=== PATIENT | female | born 1995 | race Caucasian/White ===

== ENCOUNTER 2016-11-15 12:31 | Emergency (ER) | payer SELFPAY ==
[2016-11-15 13:01] LABS: Bilirubin Negative (Negative); Blood, Urine Negative (Negative); Glucose, Urine (Dipstick) Negative (Negative); Ketone, Urine Negative (Negative); Nitrite Negative (Negative); Protein, Urine (Dipstick) Negative (Neg-Trace); Urobilinogen 0.2 mg/dL (0.2-1.0)
[2016-11-15 13:15] LABS: Bacteria/HPF 1+ HPF (None Seen); Hyaline Casts/LPF NONE SEEN LPF (0-3 Hyaline); Oval Fat Bodies/HPF None Seen HPF (None Seen); RBC/HPF 0-3 HPF (0-3); Renal Epithelial None Seen HPF (0-3); Sperm/HPF None Seen HPF (None Seen); Transitional Epithelial NONE SEEN HPF (0-3); Trichomonas/HPF None Seen HPF (None Seen); Yeast-All Forms None Seen HPF (None Seen)
--- NOTE | 2016-11-15 14:18 | ERRECORD ---
[facility] EMERGENCY RECORD HPI ABDOMINAL PAIN (12:56 [facility]) CHIEF COMPLAINTS: Patient presents for evaluation of abdominal pain. HISTORIAN: History provided by patient, 21 year old female presents with complaints of two weeks of nausea, 2 days of intermittent sharp stabbing lower abdominal pain, and a positive test yesterday. She reports having the subcutaneous control implant placed in Sep 2015. Denies back pain, dysuria, or fever. Does not have regular menstrual periods. LOCATION FEMALE: Symptoms are localized, most severe in the suprapubic region. QUALITY: Pain is sharp in nature, described as stabbing. TIME COURSE: Gradual onset of symptoms, Symptoms are intermittent. MODIFYING FACTORS FEMALE: : 2, Para: 1, Patient using control, control injections. RELIEVED BY: Patient's condition relieved by nothing. EXACERBATED BY: Patient's condition exacerbated by nothing. RISK FACTORS FEMALE: Ectopic risk factors:, No abdominal aortic aneurysm risk factors, No coronary artery disease risk factors. ROS (12:59 [facility]) CONSTITUTIONAL: Negative constitutional review of systems, Historian denies chills, denies fever. EYES: Negative eye review of systems, Historian denies eye pain, denies vision changes. ENT: Negative ears, nose, throat review of systems, Historian denies rhinorrhea, denies sore throat, denies voice changes. CARDIOVASCULAR: Negative cardiovascular review of systems, Historian denies chest pain, denies palpitations. RESPIRATORY: Negative respiratory review of systems, Historian denies cough, denies shortness of breath. GI: Historian reports abdominal pain, reports nausea, reports vomiting. GENITOURINARY FEMALE: Negative genitourinary review of systems, Historian denies dysuria, denies frequency. MUSCULOSKELETAL: Negative musculoskeletal review of systems, Historian denies back pain, denies fall, denies injury. SKIN: Negative skin review of systems, Historian denies rash, denies skin changes. NEUROLOGIC: Negative neurologic review of systems, Historian denies headache, denies mental status changes, denies paralysis, denies paresthesias, denies sensory changes. HEMO/LYMPHATIC: Normal hematologic/lymphatic system review, Historian denies abnormal blood clotting. ALLERGIC/IMMUNOLOGIC: Normal allergy/immunologic system review, Historian denies frequent infections. PAST MEDICAL HISTORY (12:43 [facility]) MEDICAL HISTORY: Past medical history includes history of &a-1R&a+25V*p+0X*c4419N*c202B*c15G*c2P*p-0X&a-25V&a+1R Name: Kari Wilde : 1995 F21 MedRec: [id number] AcctNum: [id number] Prepared: [place] Nov 15, 2016 14:10 by Interface Page 1 of 4 pMD [facility] EMERGENCY RECORD hypertension, has been off medication for 1.5 years because she cannot afford it at this time. REVIEWED 11/15/16. FEMALE SURGICAL HISTORY: Patient has no surgical history. REVIEWED 11/15/16. PSYCHIATRIC HISTORY: No previous psychiatric history. REVIEWED 11/15/16. SOCIAL HISTORY: Patient is a former tobacco user, smoked cigarettes, Patient quit smoking in the past year, Patient denies alcohol use, Patient denies drug use,. FAMILY HISTORY: Paternal history of hypertension:, Maternal history of hypertension. KNOWN ALLERGIES No Known Drug Allergies CURRENT MEDICATIONS (12:37 AADK) Nexplanon: IMPLANT (EA) : Strength - 68 mg : SUBCUTANEOUS Patient Dose: Unknown. VITAL SIGNS VITAL SIGNS: BP: 150/96, Pulse: 76, Resp: 20 (Non-Labored), Temp: 98.2 (Oral), Pain: 5 (Constant), O2 sat: 98 on Room Air, Time: 11/15/2016 12:38. (12:38 AADK) BP: 150/80, Pulse: 76, Resp: 18, Temp: 98.3, Pain: 0, O2 sat: 100 on ra, Time: 11/15/2016 14:06. (14:06 [facility]) PHYSICAL EXAM (12:59 [facility]) CONSTITUTIONAL: Vital signs reviewed, Patient afebrile, Pulse normal, Blood pressure normal, Respiratory rate normal, Patient appears non toxic, Patient appears pain free, Patient alert and oriented to person, place and time. HEAD: Head exam normal, Head exam included findings of head atraumatic, normocephalic. EYES: Eye exam normal, Eye exam included findings of eyelids normal to inspection, Pupils equally round and reactive to light, Extraocular muscles intact, no nystagmus. ENT: ENT exam normal, Ear exam normal, external ear normal, tympanic membranes normal, no bleeding, Pharynx exam normal, Uvula exam normal, Tonsil exam normal, Mouth exam normal, mucous membranes moist, teeth normal. NECK: Neck exam normal, Neck exam included findings of normal range of motion, Trachea midline, no meningeal signs, no cervical adenopathy, no tenderness. RESPIRATORY CHEST: Respiratory and chest exam normal, Respiratory exam included findings of no respiratory distress, Breath sounds clear. CARDIOVASCULAR: Cardiovascular assessment normal, Cardiovascular exam included findings of heart rate regular rate and rhythm, Heart sounds normal. &a-1R&a+25V*p+0X*p2666H*c202B*c15G*c2P*p-0X&a-25V&a+1R Name: Kari Wilde : 1995 F21 MedRec: [id number] AcctNum: [id number] Prepared: [place] Nov 15, 2016 14:10 by Interface Page 2 of 4 pMD [facility] EMERGENCY RECORD ABDOMEN FEMALE: Abdominal exam included findings of abdomen tender, to the suprapubic region, no peritoneal signs, Rovsing's sign absent. BACK: Back exam normal, Back exam included findings of normal inspection, range of motion normal, no tenderness. UPPER EXTREMITY: Upper extremity exam normal, Upper extremity exam included findings of inspection normal, Range of motion normal, Motor strength normal, Sensation intact, Radial pulse normal. LOWER EXTREMITY: Lower extremity exam normal, Lower extremity exam included findings of inspection normal, Range of motion normal, Motor strength normal, Sensation intact, Posterior tibial pulse normal, Pedal pulse normal. NEURO: Neuro exam normal, Neuro exam findings include patient oriented to person, place and time, Speech normal, Gait normal, Cranial nerves intact, no focal motor deficits, no focal sensory deficits. SKIN: Skin exam normal, Skin exam included findings of skin warm, dry, and normal in color, no rash. PSYCHIATRIC: Psychiatric exam normal, Normal affect. DOCTOR NOTES (14:01 [facility]) TEXT: Patient presented with primary concern for possible . Our tests here show no evidence, and bedside US shows empty uterus. I discussed the need for pelvic exam to rule out cervicitis or other gynecologic cause of lower abdominal pain, but patient states she was tested a week ago, it was negative, and she refused. I have low suspicion for appendicitis based on physical exam and time course. I do not believe she needs further workup or investigation and is appropriate for outpatient follow up and management. PATIENT STATUS: Patient has improved since arrival to emergency department. PATIENT PLAN: The patient will be discharged, The patient will follow up with primary care physician. DATA REVIEWED: Lab data reviewed. PROBLEM LIST No recorded problems DIAGNOSIS (14:00 [facility]) FINAL: PRIMARY: Abdominal Pain. PRESCRIPTION No recorded prescriptions DISPOSITION PATIENT: Disposition Type: Discharge, Disposition: *Discharge Home. (14:00 [facility]) Patient left the department. (14:07 KMOR) [place]: &a-1R&a+25V*p+0X*o7261G*c202B*c15G*c2P*p-0X&a-25V&a+1R Name: Kari Wilde : 1995 F21 MedRec: [id number] AcctNum: [id number] Prepared: [place] Nov 15, 2016 14:10 by Interface Page 3 of 4 pMD [facility] EMERGENCY RECORD AADK=REGIS Ga, Amanda HERNÁNDEZ=MD Lily, Arnel KMOR=REGIS Carrasquillo, Jenniffer &a-1R&a+25V*p+0X*[id number]*c202B*c15G*c2P*p-0X&a-25V&a+1R Name: Kari Wilde : 1995 F21 MedRec: [id number] AcctNum: [id number] Prepared: [place] Nov 15, 2016 14:10 by Interface Page 4 of 4 pMD MTDD
--- NOTE | 2016-11-15 14:19 | PICIS ---
[facility] EMERGENCY RECORD TRIAGE (12:37 AADK) PATIENT: NAME: Kari Wilde, AGE: 21, GENDER: female, : Wed1995, TIME OF GREET: Sun Nov 15, 2016 12:31, PREFERRED LANGUAGE: Welsh, ETHNICITY: Not or , ECODE BILLING MAP: [facility], SSN: [id number], Zip Code: [address], KG WEIGHT: 99.79 (est.), PHONE: , , , PERSON ID: [id number], PAYMENT: SJX Self Pay, PCP: NONE. (12:37 AADK) COMPLAINT: ABDOMINAL PAIN. (12:37 [facility]K) ADMISSION: URGENCY: 3 Urgent, ADMISSION SOURCE: Home, TRANSPORT: CAR, BED: ER -02. (12:37 AADK) PAIN: Patient complains of pain described as, sharp, on a scale 0-10 patient rates pain as 5, Pain is constant, Aggravating factors:, Pain exacerbated by movement. (12:43 [facility]) IMMUNIZATIONS: Flu vaccine not up to date, Tetanus immunization up to date, Date of immunization: < 10 YEARS, Pneumococcal vaccine not up to date. (12:43 [facility]) SIRS SCORING: Heart Rate 55-109 (0), Temp range 96.8-101.1 (0), respiratory rate 12-24 (0), Mental Status altered: no (0), Total SIRS Score 0, Infection or Suspected Infection: No. (12:43 [facility]ADK) TRIAGE SCREENING: Patient denies suicidal ideation, Patient denies presence of domestic violence. (12:43 [facility]K) PROVIDERS: TRIAGE NURSE: Amanda Ga RN. (12:37 AADK) VITAL SIGNS: BP 150/96, Pulse 76, Resp 20, (Non-Labored), Temp 98.2, (Oral), Pain 5, (Constant), O2 Sat 98, on Room Air, Time 11/15/2016 12:38. (12:38 AADK) PREVIOUS VISIT ALLERGIES: No Known Drug Allergies. (12:37 [facility]ADK) No Known Drug Allergies. (12:43 [facility]K) KNOWN ALLERGIES No Known Drug Allergies CURRENT MEDICATIONS (12:37 AADK) Nexplanon: IMPLANT (EA) : Strength - 68 mg : SUBCUTANEOUS Patient Dose: Unknown. VITAL SIGNS VITAL SIGNS: BP: 150/96, Pulse: 76, Resp: 20 (Non-Labored), Temp: 98.2 (Oral), Pain: 5 (Constant), O2 sat: 98 on Room Air, Time: 11/15/2016 12:38. (12:38 AADK) BP: 150/80, Pulse: 76, Resp: 18, Temp: 98.3, Pain: 0, O2 sat: 100 on ra, Time: 11/15/2016 14:06. (14:06 KMOR) NURSING ASSESSMENT: ABDOMEN (12:37 AADK) CONSTITUTIONAL: Patient arrives ambulatory, Gait steady, History obtained from patient, Patient appears comfortable, Patient cooperative, Patient alert, Oriented to person, place and time, Skin warm, Skin dry, Skin normal in color, Mucous membranes pink, Mucous &a-1R&a+25V*p+0X*j3490B*c202B*c15G*c2P*p-0X&a-25V&a+1R Name: Kari Wilde : 1995 F21 MedRec: [id number] AcctNum: [id number] Prepared: [place] Nov 15, 2016 14:16 by Interface Page 1 of 6 pMD [facility] EMERGENCY RECORD membranes moist, Patient is well-groomed, Patient complains of ABDOMINAL PAIN, PT PRESENTS TO ER WITH C/O ABDOMINAL PAIN, POINTING TO SUPRAPUBIC AREA. STATES IT'S CONSTANT BUT WORSE WHEN SHE WALKS. STATES SHARP, 5/10. PT ALSO STATES SHE TOOK "7" HOME TESTS YESTERDAY AND THEY WERE ALL POSITIVE. SHE HAS AN IMPLANTED CONTROL AND HAS HAD SINCE SEP 2015. PT STATES VOMITING DAILY FOR 2 WEEKS, DENIES NAUSEA OR S/S OF UTI. ABDOMEN SOFT, BS X4, LBM TODAY (NORMAL PER PT), TENDERNESS TO SUPRAPUBIC AREA WITH PALPATION. PAIN: sharp pain, to the suprapubic region, constant, on a scale 0-10 patient rates pain as 5, Pain exacerbated by, ambulation. ABDOMEN: Abdomen assessment findings include abdomen symmetrical, Abdomen soft, tender, suprapubic, Bowel sound normal, no associated nausea, Associated with vomiting, history of vomiting, PT STATES DAILY FOR 2 WEEKS., no associated diarrhea, no associated constipation, Date of last bowel movement: TODAY. LMP: Notes: PT UNSURE SHE HAD NEXAPLON IMPLANTED IN SEP 2015 AND HAS NOT HAD A PERIOD SINCE THEN. GENITOURINARY FEMALE: no associated urinary complaints. SAFETY: Side rails up, Cart/Stretcher in lowest position, Call light within reach, Hospital ID band on, Patient in view of the nursing station. NURSING PROCEDURE: DISCHARGE NOTE (14:06 [facility]) DISCHARGE: Patient discharged to home, ambulating without assistance, driving self, unaccompanied, Summary of Care printed/ provided, Transition record given to patient, Discharge instructions given to patient, Simple or moderate discharge teaching performed, by REGIS Abad, Discharge instructions and follow up reviewed with patient. Pt ambulatory to discharge desk., Above person(s) verbalized understanding of discharge instructions and follow-up care. BELONGINGS: Belongings remain with patient, Valuables remain with patient. VITAL SIGNS: BP: 150, / 80, Pulse: 76, Resp: 18, Temp: 98.3, Pain: 0, O2 sat: 100, on: ra, Time: 1400. NURSING PROCEDURE: URINE COLLECTION (12:47 KMOR) PATIENT IDENTIFIER: Patient actively involved in identification process, Patient's identity verified by patient stating name, Patient's identity verified by patient stating date. URINE COLLECTION FEMALE: Urine collected by mid-stream clean catch, Output amount (mL) 100ml, urine yellow in color, and clear, Specimen labeled in the presence of the patient and sent to lab. ORDER DETAILS Order Name: HCG, Total Quant, Status: Active, Time: 12:56 11/15/2016, &a-1R&a+25V*p+0X*x5012K*c202B*c15G*c2P*p-0X&a-25V&a+1R Name: Kari Wilde : 1995 F21 MedRec: [id number] AcctNum: [id number] Prepared: [place] Nov 15, 2016 14:16 by Interface Page 2 of 6 pMD [facility] EMERGENCY RECORD User: NINA, - Ordered for: MD Bautista Jason, - Entered by: MD Bautista Jason - [place] Nov 15, 2016 12:56, - Quantity: 1, Order Name: Test, Urine (BHCG), Status: Active, Time: 12:46 11/15/2016, User: MADELYN, - Ordered for: MD Bautista Jason, - Entered by: REGIS Carrasquillo, Jenniffer Mallory Nov 15, 2016 12:46, - Quantity: 1, Order Name: Urinalysis w/ Rflx Microscopic, Status: Active, Time: 12:46 11/15/2016, User: MADELYN, - Ordered for: MD Bautista Jason, - Entered by: REGIS Carrasquillo, Jenniffer Mallory Nov 15, 2016 12:46, - Quantity: 1. HPI ABDOMINAL PAIN (12:56 [facility]) CHIEF COMPLAINTS: Patient presents for evaluation of abdominal pain. HISTORIAN: History provided by patient, 21 year old female presents with complaints of two weeks of nausea, 2 days of intermittent sharp stabbing lower abdominal pain, and a positive test yesterday. She reports having the subcutaneous control implant placed in Sep 2015. Denies back pain, dysuria, or fever. Does not have regular menstrual periods. LOCATION FEMALE: Symptoms are localized, most severe in the suprapubic region. QUALITY: Pain is sharp in nature, described as stabbing. TIME COURSE: Gradual onset of symptoms, Symptoms are intermittent. MODIFYING FACTORS FEMALE: : 2, Para: 1, Patient using control, control injections. RELIEVED BY: Patient's condition relieved by nothing. EXACERBATED BY: Patient's condition exacerbated by nothing. RISK FACTORS FEMALE: Ectopic risk factors:, No abdominal aortic aneurysm risk factors, No coronary artery disease risk factors. ROS (12:59 [facility]) CONSTITUTIONAL: Negative constitutional review of systems, Historian denies chills, denies fever. EYES: Negative eye review of systems, Historian denies eye pain, denies vision changes. ENT: Negative ears, nose, throat review of systems, Historian denies rhinorrhea, denies sore throat, denies voice changes. CARDIOVASCULAR: Negative cardiovascular review of systems, Historian denies chest pain, denies palpitations. RESPIRATORY: Negative respiratory review of systems, Historian denies cough, denies shortness of breath. GI: Historian reports abdominal pain, reports nausea, reports vomiting. GENITOURINARY FEMALE: Negative genitourinary review of systems, &a-1R&a+25V*p+0X*z8457O*c202B*c15G*c2P*p-0X&a-25V&a+1R Name: Kari Wilde : 1995 F21 MedRec: [id number] AcctNum: [id number] Prepared: [place] Nov 15, 2016 14:16 by Interface Page 3 of 6 pMD [facility] EMERGENCY RECORD Historian denies dysuria, denies frequency. MUSCULOSKELETAL: Negative musculoskeletal review of systems, Historian denies back pain, denies fall, denies injury. SKIN: Negative skin review of systems, Historian denies rash, denies skin changes. NEUROLOGIC: Negative neurologic review of systems, Historian denies headache, denies mental status changes, denies paralysis, denies paresthesias, denies sensory changes. HEMO/LYMPHATIC: Normal hematologic/lymphatic system review, Historian denies abnormal blood clotting. ALLERGIC/IMMUNOLOGIC: Normal allergy/immunologic system review, Historian denies frequent infections. PAST MEDICAL HISTORY (12:43 [facility]) MEDICAL HISTORY: Past medical history includes history of hypertension, has been off medication for 1.5 years because she cannot afford it at this time. REVIEWED 11/15/16. FEMALE SURGICAL HISTORY: Patient has no surgical history. REVIEWED 11/15/16. PSYCHIATRIC HISTORY: No previous psychiatric history. REVIEWED 11/15/16. SOCIAL HISTORY: Patient is a former tobacco user, smoked cigarettes, Patient quit smoking in the past year, Patient denies alcohol use, Patient denies drug use,. FAMILY HISTORY: Paternal history of hypertension:, Maternal history of hypertension. PHYSICAL EXAM (12:59 [facility]) CONSTITUTIONAL: Vital signs reviewed, Patient afebrile, Pulse normal, Blood pressure normal, Respiratory rate normal, Patient appears non toxic, Patient appears pain free, Patient alert and oriented to person, place and time. HEAD: Head exam normal, Head exam included findings of head atraumatic, normocephalic. EYES: Eye exam normal, Eye exam included findings of eyelids normal to inspection, Pupils equally round and reactive to light, Extraocular muscles intact, no nystagmus. ENT: ENT exam normal, Ear exam normal, external ear normal, tympanic membranes normal, no bleeding, Pharynx exam normal, Uvula exam normal, Tonsil exam normal, Mouth exam normal, mucous membranes moist, teeth normal. NECK: Neck exam normal, Neck exam included findings of normal range of motion, Trachea midline, no meningeal signs, no cervical adenopathy, no tenderness. RESPIRATORY CHEST: Respiratory and chest exam normal, Respiratory exam included findings of no respiratory distress, Breath sounds clear. CARDIOVASCULAR: Cardiovascular assessment normal, Cardiovascular exam included findings of heart rate regular rate and rhythm, Heart sounds normal. &a-1R&a+25V*p+0X*h5996S*c202B*c15G*c2P*p-0X&a-25V&a+1R Name: Kari Wilde : 1995 F21 MedRec: [id number] AcctNum: [id number] Prepared: [place] Nov 15, 2016 14:16 by Interface Page 4 of 6 pMD [facility] EMERGENCY RECORD ABDOMEN FEMALE: Abdominal exam included findings of abdomen tender, to the suprapubic region, no peritoneal signs, Rovsing's sign absent. BACK: Back exam normal, Back exam included findings of normal inspection, range of motion normal, no tenderness. UPPER EXTREMITY: Upper extremity exam normal, Upper extremity exam included findings of inspection normal, Range of motion normal, Motor strength normal, Sensation intact, Radial pulse normal. LOWER EXTREMITY: Lower extremity exam normal, Lower extremity exam included findings of inspection normal, Range of motion normal, Motor strength normal, Sensation intact, Posterior tibial pulse normal, Pedal pulse normal. NEURO: Neuro exam normal, Neuro exam findings include patient oriented to person, place and time, Speech normal, Gait normal, Cranial nerves intact, no focal motor deficits, no focal sensory deficits. SKIN: Skin exam normal, Skin exam included findings of skin warm, dry, and normal in color, no rash. PSYCHIATRIC: Psychiatric exam normal, Normal affect. EVENTS TRANSFER: Triage to Emergency Emergency Room -02. ([place] Nov 15, 2016 12:37 AADK) Removed from Emergency Emergency Room -02. (14:07 KM[facility]) DOCTOR NOTES (14:01 [facility] TEXT: Patient presented with primary concern for possible . Our tests here show no evidence, and bedside US shows empty uterus. I discussed the need for pelvic exam to rule out cervicitis or other gynecologic cause of lower abdominal pain, but patient states she was tested a week ago, it was negative, and she refused. I have low suspicion for appendicitis based on physical exam and time course. I do not believe she needs further workup or investigation and is appropriate for outpatient follow up and management. PATIENT STATUS: Patient has improved since arrival to emergency department. PATIENT PLAN: The patient will be discharged, The patient will follow up with primary care physician. DATA REVIEWED: Lab data reviewed. PROBLEM LIST No recorded problems DIAGNOSIS (14:00 [facility]) FINAL: PRIMARY: Abdominal Pain. DISPOSITION PATIENT: Disposition Type: Discharge, Disposition: *Discharge Home. (14:00 [facility]) &a-1R&a+25V*p+0X*y5536Q*c202B*c15G*c2P*p-0X&a-25V&a+1R Name: Kari Wilde : 1995 F21 MedRec: [id number] AcctNum: [id number] Prepared: [place] Nov 15, 2016 14:16 by Interface Page 5 of 6 pMD [facility] EMERGENCY RECORD Patient left the department. (14:07 [facility]) INSTRUCTION (14:01 [facility]) DISCHARGE: ABDOMINAL PAIN, UNKNOWN CAUSE, (FEMALE). SPECIAL: Follow up with primary doctor as scheduled tomorrow. IF you have worsening pain, return to the ED. PRESCRIPTION No recorded prescriptions IMAGING (14:08 [facility]) *DISCHARGE INSTRUCTIONS RECEIPT: Image captured from scanner. *SUPPLY CHARGE SHEET: Image captured from scanner. ADMIN DIGITAL SIGNATURE: MD Bautista Jason. (14:03 [facility]) REGIS Carrasquillo Krista. (14:07 KMOR) [place]: AADK=REGIS Ga, Amanda [facility]=MD Bautista Jason KMOR=REGIS Carrasquillo Krista &a-1R&a+25V*p+0X*k9424T*c202B*c15G*c2P*p-0X&a-25V&a+1R Name: Kari Wilde : 1995 F21 MedRec: [id number] AcctNum: [id number] Prepared: [place] Nov 15, 2016 14:16 by Interface Page 6 of 6 pMD MTDD
== END 2016-11-15 14:06 | disposition home or self-care (01) ==
LOC: BURERS 12:31
DX: R10.30 Lower abdominal pain, unspecified (principal); I10 Essential (primary) hypertension
CPT/HCPCS: 36415; 81003; 81015; 81025; 84702; 99284

== ENCOUNTER 2018-08-05 21:35 | Emergency (ER) | payer SELFPAY ==
[2018-08-05 22:13] LABS: Clarity Clear (Clear); Leukocyte Trace (Negative); Nitrite Negative (Negative); Protein, Urine (Dipstick) Negative (Neg-Trace)
[2018-08-05 22:14] LABS: Bilirubin Negative (Negative); Blood, Urine Large (Negative); Glucose, Urine (Dipstick) Negative (Negative); Pregnancy Test - Urine (BHCG) Negative (Negative); Urobilinogen 0.2 mg/dL (0.2-1.0)
[2018-08-05 22:15] LABS: Pregu Control Background? CLEAR/WHITE (CLR/WHITE); Pregu Control Bar Appear? YES (CONTROL BAR)
[2018-08-05 22:17] LABS: Bacteria/HPF Rare-Few HPF (None Seen); Squamous Epithelial None Seen HPF (0-3); WBC/HPF 0-3 HPF (0-3)
--- NOTE | 2018-08-05 23:46 | CT ---
CT ABDOMEN AND PELVIS 08/05/18 COMPARISON: None. HISTORY: Right lower quadrant pain, left lower quadrant pain. TECHNIQUE: Serial axial CT imaging is obtained at 5 mm intervals from lung bases through pubic symphysis without contrast. Coronal and sagittal reformatted imaging obtained. FINDINGS: Evaluation of the viscera, bowel, vascular structures and for lymphadenopathy is limited without cont rast media. Imaged lung bases are unremarkable. No free intraperitoneal air or fluid. The hepatic parenchyma is hypodense suggesting hepatic steatosis. There is mild splenomegaly, the spleen measuring 14 cm in greatest dimension . Pancreas and adrenal glands appear grossly unremarkable. Vague low density lesion in lower pole of right kidney noted consistent with a cyst, best seen on axi al image 43, measuring in the 1 cm range. No evidence or nephrolithiasis or hydronephrosis on either side. There is prominent soft tissue density in bilateral adnexal regions, right greater than left, not wel l characterized on this examination. This could be better assessed via pelvic ultrasound if clinicall y warranted. Limited assessment of the bowel demonstrates no evidence for obstruction or appendicitis. Osseous structures demonstrate no acute findings. At T12-L1, there is disc space narrowing and mild posterior osteophyte formation. IMPRESSION: No evidence for nephrolithiasis or obstructive uropathy. Numerous incidental findings as described ab ove. Please see above discussion. POS: RAFAEL
== END 2018-08-05 21:48 | disposition home or self-care (01) ==
LOC: BURERS 21:35
DX: R10.30 Lower abdominal pain, unspecified (principal); I10 Essential (primary) hypertension; Z87.891 Personal history of nicotine dependence
CPT/HCPCS: 74176; 81003; 81015; 81025

== ENCOUNTER 2023-04-14 14:08 | Emergency (ER) | payer SELFPAY ==
[2023-04-14 14:59] LABS: #Basophils 0.1 thou/uL (0.0-0.2); #Eosinphils 0.2 thou/uL (0.0-0.7); #Lymphocytes 2.1 thou/uL (1.20-3.40); #Monocytes 0.8 thou/uL (0.11-0.59); #Neutrophils 7.1 thou/uL (1.40-6.50); %Basophils 0.8 % (0.0-1.0); %Eosinophils 1.6 % (0.0-10.0); %Lymphocytes 20.4 % (21.0-51.0); %Monocytes 7.9 % (0.0-10.0); %Neutrophils 69.2 % (42.0-75.0); Hemoglobin 14.9 g/dL (12.0-16.0); Mean Corpuscular HGB CONC 34.6 g/dL (32.0-36.0); Mean Corpuscular Hemoglobin 30.9 pg (27.0-31.0); Mean Corpuscular Volume 89.5 fl (78.0-98.0); Platelet Count 248 10x3/uL (130-400); RBC Distribution Width 11.3 % (11.5-14.5); Red Blood Cell (RBC) Count 4.83 mill/uL (4.20-5.40); White Blood Cell (WBC) Count 10.3 10x3/uL (4.8-10.8)
== END 2023-04-14 15:37 | disposition home or self-care (01) ==
LOC: BURERS 14:08
DX: N92.0 Excessive and frequent menstruation with regular cycle (principal); N93.8 Other specified abnormal uterine and vaginal bleeding; I10 Essential (primary) hypertension; Z87.891 Personal history of nicotine dependence
CPT/HCPCS: 36415; 84702; 85025; 99284

== ENCOUNTER 2023-08-25 15:06 | Emergency (ER) | payer SELFPAY ==
[2023-08-25 16:11] LABS: #Basophils 0.1 thou/uL (0.0-0.2); #Eosinphils 0.2 thou/uL (0.0-0.7); #Lymphocytes 1.9 thou/uL (1.20-3.40); #Monocytes 0.6 thou/uL (0.11-0.59); #Neutrophils 5.7 thou/uL (1.40-6.50); %Basophils 1.2 % (0.0-1.0); %Eosinophils 2.4 % (0.0-10.0); %Lymphocytes 21.9 % (21.0-51.0); %Monocytes 7.4 % (0.0-10.0); %Neutrophils 67.2 % (42.0-75.0); Hematocrit 42.8 % (36.0-47.0); Hemoglobin 15.1 g/dL (12.0-16.0); Mean Corpuscular HGB CONC 35.2 g/dL (32.0-36.0); Mean Corpuscular Volume 88.1 fl (78.0-98.0); Mean Platelet Volume 10.3 fL (7.4-10.4); Platelet Count 280 10x3/uL (130-400); RBC Distribution Width 11.1 % (11.5-14.5); Red Blood Cell (RBC) Count 4.86 mill/uL (4.20-5.40); White Blood Cell (WBC) Count 8.5 10x3/uL (4.8-10.8)
[2023-08-25] MEDS ORDERED: predniSONE 20 MG TAB ONE (16:13)
[2023-08-25] MEDS ORDERED: Metoclopramide HCl 10 MG/2 ML VIAL ONE (16:13)
[2023-08-25 16:15] LABS: BHCG - Serum Negative (NEGATIVE); Pregs Control Background? CLEAR/WHITE (CLR/WHITE); Pregs Control Bar Appear? YES (CONTROL BAR)
[2023-08-25 16:20] LABS: Bilirubin Negative (Negative); Blood, Urine Negative (Negative); Clarity Slightly Cloudy (Clear); Glucose, Urine (Dipstick) Negative (Negative); Ketone, Urine Negative (Negative); Leukocyte Moderate (Negative); Nitrite Negative (Negative); Protein, Urine (Dipstick) Negative (Neg-Trace); Specific Gravity, Urine 1.025 (1.005-1.030); pH, Urine 6.5 (5.0-9.0)
[2023-08-25 16:24] LABS: ALT (SGPT) 55 U/L (8-55); AST (SGOT) 27 U/L (5-34); Albumin 4.1 g/dL (3.5-5.0); Alkaline Phosphatase 59 U/L (40-110); Anion Gap 15 mmol/L (10-20); BUN (Urea Nitrogen) 10 mg/dL (7.0-18.7); Calc. Creatinine Clearance 0 mL/min (70-130); Calcium 8.9 mg/dL (7.8-10.44); Carbon Dioxide 21 mmol/L (22-29); Chloride 107 mmol/L (98-107); Estimated GFR 123; Globulin 2.9 g/dL (2.4-3.5); Glucose 118 mg/dL (70-105); Sodium 139 mmol/L (136-145)
[2023-08-25 16:55] LABS: RBC/HPF None Seen HPF (0-3)
[2023-08-25 16:56] LABS: Bacteria/HPF 1+ HPF (None Seen); CAUTI Indications for Culture Dysuria,urgency,freq
[2023-08-25 16:58] LABS: Urine Culture Reflex No No
== END 2023-08-25 17:03 | disposition home or self-care (01) ==
LOC: BURERS 15:06
DX: R51.9 Headache, unspecified (principal); I10 Essential (primary) hypertension; Z87.891 Personal history of nicotine dependence
CPT/HCPCS: 80053; 81001; 84703; 85025; 85610; 96372; 99284; J2765; J7512